=== PATIENT | male | born 2000 | race African-American/Black ===

== ENCOUNTER 2022-10-18 22:35 | Emergency (ER) | payer OTHER ==
[2022-10-18 22:42] VITALS: BP 139/76; PULSE 84; RESP 17; TEMP 97.7; BMI 19.5
[2022-10-18] MEDS ORDERED: ACETAMINOPHEN 1000 MG/100 ML BAG IVPB ONE (23:03)
[2022-10-18] MEDS ORDERED: LACTATED RINGERS SOLUTION 1,000 ML/1,000 ML INFUS.BAG IV SCH (23:15)
[2022-10-19] MEDS ORDERED: ACETAMINOPHEN INJECTION 100 ML IVPB ONE (00:03)
[2022-10-19 01:17] LABS: BASO % 0.6 % (0-2.0); EOS % 1.3 % (0-4.5); HEMATOCRIT 43.1 % (35.4-49); HEMOGLOBIN 14.5 GM/dL (11.7-16.9); LYMPH % 15.5 % (8-40); MCH 30.8 pg (25.7-33.7); MCHC 33.6 g/dl (32.0-35.9); MEAN CELL VOLUME 91.8 fl (80-96); MEAN PLT VOLUME 11.7 fl (7.5-11.1); NEUT % 71.6 % (42.8-82.8); PLATELET COUNT 169 10^3/uL (134-434); RDW 14.3 % (11.9-15.9); WHITE BLOOD COUNT 7.2 K/mm3 (4.0-10.0)
[2022-10-19 01:21] LABS: CALCIUM 9.3 mg/dL (8.5-10.1)
[2022-10-19 01:22] LABS: ALBUMIN 4.5 g/dl (3.4-5.0); BLOOD UREA NITROGEN 7.2 mg/dL (7-18)
[2022-10-19 01:25] LABS: CREATININE 0.9 mg/dL (0.55-1.3)
[2022-10-19 01:26] LABS: TOT PROT 8.5 g/dl (6.4-8.2)
[2022-10-19 01:27] LABS: BILIRUBIN,TOTAL 0.3 mg/dL (0.2-1)
== END 2022-10-19 03:02 | disposition home or self-care (01) ==
LOC: JER 22:35
PROC: 3E033NZ Introduction of Analgesics, Hypnotics, Sedatives into Peripheral Vein, Percutaneous Approach (ICD-10-PCS; principal; 2022-10-18)
DX: R55 Syncope and collapse (principal)
CPT/HCPCS: 0241U-QW; 36415; 70450-TC; 71045-TC-FY; 80053; 84484; 85025; 93005; 93010; 99285-25